=== PATIENT | male | born 1960 | race Caucasian/White ===

== ENCOUNTER 2017-08-04 01:29 | Inpatient (IN) | payer OTHER ==
[2017-08-04] VITALS (7 sets, daily range): BP systolic 141–170; BP diastolic 94–108
[~2017-08-04] VITALS: Ht 185.4 cm; Wt 85.4 kg
[2017-08-04 02:03] LABS: BASO # 0.1 x10^3/uL (0.0-0.2); BASO % 1 % (0-3); EOS % 3 % (0-3); HEMATOCRIT 43.4 % (39.0-53.0); HEMOGLOBIN 14.6 g/dL (13.0-17.5); LYMPH # 3.8 x10^3/uL (1.0-4.8); LYMPH % 37 % (24-48); MEAN CORPUSCULAR HEMOGLOBIN 29 pg (25-35); MEAN CORPUSCULAR HGB CONC 34 g/dL (31-37); MEAN CORPUSCULAR VOLUME 85 fL (79-100); MONO % 9 % (0-9); NEUT % 51 % (31-73); PLATELET COUNT 200 x10^3/uL (140-400); WHITE BLOOD COUNT 10.5 x10^3/uL (4.0-11.0)
[2017-08-04 02:15] LABS: CALCIUM 8.9 mg/dL (8.5-10.1); CREATININE 1.4 mg/dL (0.7-1.3); GFR 51.9; POTASSIUM 3.3 mmol/L (3.5-5.1)
[2017-08-04] MEDS ORDERED: LABETALOL 20 MG/4 ML DISP.SYRIN. IVP ONE (02:15)
[2017-08-04 02:16] LABS: PROTHROMBIN TIME PATIENT 12.2 SEC (11.7-14.0)
[2017-08-04 02:21] LABS: ALBUMIN 4.3 g/dL (3.4-5.0); ALBUMIN/GLOBULIN RATIO 1.3 (1.0-1.7); TOTAL BILIRUBIN 0.3 mg/dL (0.2-1.0); TOTAL PROTEIN 7.5 g/dL (6.4-8.2)
--- NOTE | 2017-08-04 02:38 | RAD ---
CT head without contrast: Reason for examination: Left arm and left leg numbness starting at 12:30 AM this morning. Numbness now resolving. Axial images were obtained through the brain. No contrast was administered. Exposure: One or more of the following individualized dose reduction techniques were utilized for this examination: 1. Automated exposure control 2. Adjustment of the mA and/or kV according to patient size 3. Use of iterative reconstruction technique. Ventricular systems are symmetric and not dilated. No midline shift is seen. There is no evidence of intracranial hemorrhage, infarct, mass or edema. There is some vascular calcification present in the intracranial carotid and vertebral arteries. No abnormalities are seen at the orbits. The paranasal sinuses and mastoid air cells are clear. No acute abnormality seen in the skull. IMPRESSION: No acute intracranial abnormality evident. Electronically signed by: Melissa Goodman MD (08/04/2017 2:35 AM) [facility]
[2017-08-04] MEDS ORDERED: ASPIRIN 325 MG TABLET PO ONE (03:00)
[2017-08-04] MEDS ORDERED: POTASSIUM CHLORIDE 20 MEQ TABLET.ER. PO ONE (03:30)
[2017-08-04 03:43] LABS: BARBITURATES NEG (NEG); BENZODIAZEPINES NEG (NEG); CANNABINOIDS NEG (NEG); COCAINE NEG (NEG); METHADONE NEG (NEG); OPIATES NEG (NEG); PHENCYCLIDINE NEG (NEG)
[2017-08-04] MEDS ORDERED: ONDANSETRON PF 4 MG/2 ML VIAL. IV PRN ×2 (03:45→10:00)
[2017-08-04] MEDS ORDERED: ACETAMINOPHEN 325 MG TABLET. PO PRN ×2 (03:45→10:00)
[2017-08-04] MEDS ORDERED: LABETALOL 20 MG/4 ML DISP.SYRIN. IVP PRN (03:45)
[2017-08-04] MEDS ORDERED: MORPHINE SULFATE 2 MG/ML DISP.SYRIN. IV PRN ×2 (03:45→10:00)
--- NOTE | 2017-08-04 04:02 | PHYS DOC ---
Past Medical History Past Medical History: High Cholesterol, Hypertension, [place] Past Surgical History: Other Additional Past Surgical Histo: CARDIAC STENTS Alcohol Use: None Drug Use: None Adult General Chief Complaint Chief Complaint: WEAKNESS/GENERALIZED HPI HPI Patient is a 57 year old male who presents with neurologic symptoms. The patient states about 1 hour prior to arrival he had onset of numbness & tingling to his left arm & leg without associated weakness. 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 He denies headache , vision changes, facial droop, slurred speech, chest pain, shortness of breath. He denies previous history of similar symptoms. He has history of hypertension but not compliant with home meds x weeks because he has difficulty remembering to take them, & is a current every day smoker. Review of Systems Review of Systems Constitutional: Denies fever or chills Eyes: Denies change in visual acuity HENT: Denies nasal congestion or sore throat Respiratory: Denies cough or shortness of breath Cardiovascular: Denies chest pain or edema GI: Denies abdominal pain, nausea, vomiting, bloody stools or diarrhea Musculoskeletal: Denies back pain or joint pain Integument: Denies rash or skin lesions Neurologic: Denies headache, reports numbness to left upper and lower extremity Current Medications Current Medications Current Medications Medications (Trade) Dose Ordered Sig/Surekha Start Time Stop Time Status Last Admin Dose Admin Acetaminophen (Tylenol) 650 mg PRN Q4HRS PRN 08/04/17 03:45 08/05/17 03:44 UNV Aspirin (Julia Aspirin) 325 mg 1X ONCE 08/04/17 03:00 08/04/17 03:02 DC 08/04/17 03:00 325 MG Labetalol HCl (Normodyne) 10 mg PRN Q2HR PRN 08/04/17 03:45 UNV Morphine Sulfate 2 mg PRN Q2HR PRN 08/04/17 03:45 08/05/17 03:44 UNV Ondansetron HCl (Zofran) 4 mg PRN Q8HRS PRN 08/04/17 03:45 08/05/17 03:44 UNV Potassium Chloride (Klor-Con) 40 meq 1X ONCE 08/04/17 03:30 08/04/17 03:31 DC Allergies Allergies Allergies Coded Allergies Type Severity Reaction Last Updated Verified No Known Drug Allergies 08/04/17 No Physical Exam Physical Exam Constitutional: Well developed, well nourished, no acute distress, non-toxic appearance. HENT: Normocephalic, atraumatic, bilateral external ears normal, oropharynx moist, nose normal. Eyes: PERRLA, EOMI, conjunctiva normal, no discharge. Neck: supple, no stridor. Cardiovascular: tachycardic, regular, no murmurs, no edema. Lungs & Thorax: LCTAB, no wheezing, no respiratory distress. Abdomen: soft, nontender, nondistended. Skin: Warm, dry, no erythema, no rash. Back: No tenderness. Extremities: No tenderness, no edema. Neurologic: Alert and oriented X 3, CN2-12 grossly intact, symmetric strength/ sensation to upper & lower extremities, intact finger to nose & heel to craft, no focal deficits noted. NIH score is 0. Psychologic: Affect normal, judgement normal, mood normal. Current Patient Data Vital Signs Vital Signs Date Time Temp Pulse Resp B/P (MAP) Pulse Ox O2 Delivery O2 Flow Rate FiO2 08/04/17 02:57 109 219/118 08/04/17 01:43 98.7 16 99 Room Air 98.7 Lab Values Laboratory Tests Test 08/04/17 01:37 White Blood Count 10.5 x10^3/uL (4.0-11.0) Red Blood Count 5.10 x10^6/uL (4.30-5.70) Hemoglobin 14.6 g/dL (13.0-17.5) Hematocrit 43.4 % (39.0-53.0) Mean Corpuscular Volume 85 fL (79-100) Mean Corpuscular Hemoglobin 29 pg (25-35) Mean Corpuscular Hemoglobin Concent 34 g/dL (31-37) Red Cell Distribution Width 14.0 % (11.5-14.5) Platelet Count 200 x10^3/uL (140-400) Neutrophils (%) (Auto) 51 % (31-73) Lymphocytes (%) (Auto) 37 % (24-48) Monocytes (%) (Auto) 9 % (0-9) Eosinophils (%) (Auto) 3 % (0-3) Basophils (%) (Auto) 1 % (0-3) Neutrophils # (Auto) 5.4 x10^3uL (1.8-7.7) Lymphocytes # (Auto) 3.8 x10^3/uL (1.0-4.8) Monocytes # (Auto) 0.9 x10^3/uL (0.0-1.1) Eosinophils # (Auto) 0.3 x10^3/uL (0.0-0.7) Basophils # (Auto) 0.1 x10^3/uL (0.0-0.2) Prothrombin Time 12.2 SEC (11.7-14.0) Prothrombin Time INR 1.0 (0.8-1.1) PTT 28 SEC (24-38) Sodium Level 139 mmol/L (136-145) Potassium Level 3.3 mmol/L (3.5-5.1) L Chloride Level 102 mmol/L (98-107) Carbon Dioxide Level 28 mmol/L (21-32) Anion Gap 9 (6-14) Blood Urea Nitrogen 11 mg/dL (8-26) Creatinine 1.4 mg/dL (0.7-1.3) H Estimated GFR (Cockcroft-Gault) 51.9 BUN/Creatinine Ratio 8 (6-20) Glucose Level 109 mg/dL (70-99) H Calcium Level 8.9 mg/dL (8.5-10.1) Total Bilirubin 0.3 mg/dL (0.2-1.0) Aspartate Amino Transferase (AST) 17 U/L (15-37) Alanine Aminotransferase (ALT) 24 U/L (16-63) Alkaline Phosphatase 164 U/L (46-116) H Troponin I Quantitative < 0.017 ng/mL (0.000-0.055) Total Protein 7.5 g/dL (6.4-8.2) Albumin 4.3 g/dL (3.4-5.0) Albumin/Globulin Ratio 1.3 (1.0-1.7) Ethyl Alcohol Level < 10 mg/dL (0-10) Laboratory Tests 08/04/17 01:37 Laboratory Tests 08/04/17 01:37 EKG EKG interpreted by me: sinus tachycardia rate 114, no acute ST/T wave changes, normal intervals, no ectopy[] Radiology/Procedures Radiology/Procedures PROCEDURE: CT HEAD WO CONTRAST CT head without contrast: Reason for examination: Left arm and left leg numbness starting at 12:30 AM this morning. Numbness now resolving. Axial images were obtained through the brain. No contrast was administered. Exposure: One or more of the following individualized dose reduction techniques were utilized for this examination: 1. Automated exposure control 2. Adjustment of the mA and/or kV according to patient size 3. Use of iterative reconstruction technique. Ventricular systems are symmetric and not dilated. No midline shift is seen. There is no evidence of intracranial hemorrhage, infarct, mass or edema. There is some vascular calcification present in the intracranial carotid and vertebral arteries. No abnormalities are seen at the orbits. The paranasal sinuses and mastoid air cells are clear. No acute abnormality seen in the skull. IMPRESSION: No acute intracranial abnormality evident. Electronically signed by: Arianna Garcia MD (08/04/2017 2:35 AM) [facility] DICTATED and SIGNED BY: ARIANNA GARCIA MD DATE: 08/04/17 0232 CXR: interpreted by me: no cardiomegaly, no infiltrate, no pneumothorax, narrow mediastinum, no acute process.[] Course & Med Decision Making Course & Med Decision Making Pertinent Labs and Imaging studies reviewed. (See chart for details) The patient presents with neurologic symptoms. His only complaint is sensory change on the left. NIH was 0, had no sensory deficit with light touch to extremities. Blood pressure markedly elevated 210s/110s, gave labetalol. CT head shows no acute abnormality, labs as above. Gave aspirin. Recommended admission for further blood pressure monitoring/management & neurologic evaluation. The patient agrees with plan of care. Discussed with Dr. Tucker who agrees to admit to inpatient status, neurology consult to Dr. Underwood. The patient is admitted in stable condition. [] Dragon Disclaimer Dragon Disclaimer This electronic medical record was generated, in whole or in part, using a voice recognition dictation system. Departure Departure Impression: Primary Impression: Accelerated hypertension Additional Impressions: Paresthesia Hypokalemia Disposition: ADMITTED INPATIENT Condition: STABLE Referrals: NO PCP (PCP) Problem Qualifiers MARJ CRAVEN MD Aug 04, 2017 04:02
[2017-08-04] MEDS ORDERED: LISI-334 PO (04:57)
[2017-08-04] MEDS ORDERED: ASPI325T8 PO (04:57)
[2017-08-04] MEDS ORDERED: METO25TA4 PO (04:57)
[2017-08-04] MEDS ORDERED: CLOP75TA PO (04:57)
[2017-08-04] MEDS ORDERED: ATOR40TA PO (04:57)
[2017-08-04] MEDS ORDERED: FAMO-63 PO (06:16)
[2017-08-04] MEDS ORDERED: FAMOTIDINE 20 MG TABLET. PO PRN (06:30)
--- NOTE | 2017-08-04 07:18 | RAD ---
Portable chest, 08/04/2017: History: Left arm and leg numbness The heart size and pulmonary vascularity are normal. There is mild tortuosity of the thoracic aorta. The lungs are clear. There is no evidence of pleural fluid. IMPRESSION: No acute cardiopulmonary abnormality is detected.
[2017-08-04] MEDS: ASPIRIN 325 MG TABLET PO SCH (08:14)
[2017-08-04] MEDS ORDERED: METOPROLOL TART IMMED RELEASE 25 MG TABLET. PO SCH (09:00)
[2017-08-04] MEDS ORDERED: LISINOPRIL 20 MG TABLET PO SCH (09:00)
[2017-08-04] MEDS ORDERED: DOCUSATE SODIUM 100 MG CAPSULE. PO PRN (10:00)
[2017-08-04] MEDS ORDERED: traMADol 50 MG TABLET PO PRN (10:00)
[2017-08-04] MEDS ORDERED: hydrALAZINE 20 MG/ML VIAL. IVP PRN ×2 (10:00→17:00)
--- NOTE | 2017-08-04 11:49 | EKG ---
[facility] [address] [place] [address] Test Date: 2017-08-04 Test Time: 01:47:22 Pat Name: RISSA JARA Department: Room: 206 Gender: M [employer]: : 1960 Requested By: MRAJ CRAVEN Order Number: [id number] Reading MD: Fabien Metzger Measurements Intervals [place] Rate: 114 P: -38 [place]: 138 QRS: -10 QRSD: 104 T: 36 QT: 336 QTc: 467 Interpretive Statements SINUS TACHYCARDIA LEFTWARD AXIS QRS(T) CONTOUR ABNORMALITY CANNOT RULE OUT ANTEROSEPTAL MYOCARDIAL DAMAGE CANNOT RULE OUT INFERIOR MYOCARDIAL DAMAGE RI6.01 Unconfirmed report No previous ECG available for comparison Electronically Signed On 08-23-2017 17:03:39 CDT by Fabien Metzger
--- NOTE | 2017-08-04 13:37 | PDOC1 ---
History and Physical Date of Admission Date of Admission 08/03/17 Identification/Chief Complaint Chief Complaint left arm numbness, weakness Problems: Source Source: Chart review, Patient History of Present Illness History of Present Illness HPI HPI Patient is a 57 year old male who presents with left arm numbness and weakness since 1am. 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 1AM, he was driving the truck, feels left arm numbness, some weakness, left leg is ok. has some headache x2 weeks, no vision or hearing change. Denies fever, chills, sob, slurry speech, chest pain, sob. never had CVA. <1PPD head CT neg, BP >200/120 in ER. Past Medical History Cardiovascular: HTN, LA Past Surgical History Past Surgical History: No pertinent history Family History Family History stroke Social History Smoke: <1 pack per day ALCOHOL: occassional Drugs: None Current Problem List Problem List Problems Medical Problems: (1) Accelerated hypertension Status: Acute (2) Hypokalemia Status: Acute (3) Paresthesia Status: Acute Current Medications Current Medications Current Medications Medications (Trade) Dose Ordered Sig/Surekha Start Time Stop Time Status Last Admin Dose Admin Acetaminophen (Tylenol) 650 mg PRN Q6HRS PRN 08/04/17 10:00 Aspirin (Julia Aspirin) 325 mg DAILY 08/04/17 09:00 08/04/17 08:14 325 MG Atorvastatin Calcium (Lipitor) 40 mg HS 08/04/17 21:00 Docusate Sodium (Colace) 100 mg PRN DAILY PRN 08/04/17 10:00 Famotidine (Pepcid) 20 mg PRN QHS PRN 08/04/17 06:30 08/04/17 06:32 20 MG Hydralazine HCl (Apresoline) 10 mg PRN Q4HRS PRN 08/04/17 10:00 Labetalol HCl (Normodyne) 10 mg PRN Q2HR PRN 08/04/17 03:45 08/04/17 05:55 10 MG Lisinopril (Prinivil) 20 mg DAILY 08/04/17 09:00 08/04/17 08:15 20 MG Metoprolol Tartrate (Lopressor) 25 mg BID 08/04/17 09:00 08/04/17 08:15 25 MG Morphine Sulfate 2 mg PRN Q2HR PRN 08/04/17 10:00 Ondansetron HCl (Zofran) 4 mg PRN Q6HRS PRN 08/04/17 10:00 Potassium Chloride (Klor-Con) 40 meq 1X ONCE 08/04/17 03:30 08/04/17 03:31 DC 08/04/17 03:55 40 MEQ Tramadol HCl (Ultram) 50 mg PRN Q6HRS PRN 08/04/17 10:00 Allergies Allergies Allergies Coded Allergies Type Severity Reaction Last Updated Verified No Known Drug Allergies 08/04/17 No ROS Review of System CONSTITUTIONAL: No fever or chills EYES: No recent changes SKIN: No rash or itching CARDIOVASCULAR: No chest pain, syncope, palpitations, or edema RESPIRATORY: No SOB or cough GASTROINTESTINAL: No nausea, vomiting or abdominal pain NEUROLOGICAL: No headaches or weakness ENDOCRINE: No cold or heat intolerance GENITOURINARY: No urgency or frequency of urination MUSCULOSKELETAL: No back pain or joint pain LYMPHATICS: No enlarged lymph nodes PSYCHIATRIC: No anxiety or depression Physical Exam Physical Exam GEN.: No apparent distress. Alert and oriented. HEENT: Head is normocephalic, atraumatic NECK: Supple. LUNGS: Clear to auscultation. HEART: RRR, S1, S2 present. Peripheral pulses intact ABDOMEN: Soft, nontender. Positive bowel sounds. EXTREMITIES: Without any cyanosis. left arm slightly weaker , strength 4/5 , right side 5/5 NEUROLOGIC: Normal speech, normal tone PSYCHIATRIC: Normal affect, normal mood. SKIN: No ulcerations Vitals Vitals Vital Signs Date Time Temp Pulse Resp B/P (MAP) Pulse Ox O2 Delivery O2 Flow Rate FiO2 08/04/17 11:00 98.0 86 18 144/99 (114) 96 Room Air 98.0 Labs Labs Laboratory Tests Test 08/04/17 01:37 08/04/17 02:30 08/04/17 11:46 White Blood Count 10.5 x10^3/uL (4.0-11.0) Red Blood Count 5.10 x10^6/uL (4.30-5.70) Hemoglobin 14.6 g/dL (13.0-17.5) Hematocrit 43.4 % (39.0-53.0) Mean Corpuscular Volume 85 fL (79-100) Mean Corpuscular Hemoglobin 29 pg (25-35) Mean Corpuscular Hemoglobin Concent 34 g/dL (31-37) Red Cell Distribution Width 14.0 % (11.5-14.5) Platelet Count 200 x10^3/uL (140-400) Neutrophils (%) (Auto) 51 % (31-73) Lymphocytes (%) (Auto) 37 % (24-48) Monocytes (%) (Auto) 9 % (0-9) Eosinophils (%) (Auto) 3 % (0-3) Basophils (%) (Auto) 1 % (0-3) Neutrophils # (Auto) 5.4 x10^3uL (1.8-7.7) Lymphocytes # (Auto) 3.8 x10^3/uL (1.0-4.8) Monocytes # (Auto) 0.9 x10^3/uL (0.0-1.1) Eosinophils # (Auto) 0.3 x10^3/uL (0.0-0.7) Basophils # (Auto) 0.1 x10^3/uL (0.0-0.2) Prothrombin Time 12.2 SEC (11.7-14.0) Prothromb Time International Ratio 1.0 (0.8-1.1) Activated Partial Thromboplast Time 28 SEC (24-38) Sodium Level 139 mmol/L (136-145) Potassium Level 3.3 mmol/L (3.5-5.1) Chloride Level 102 mmol/L (98-107) Carbon Dioxide Level 28 mmol/L (21-32) Anion Gap 9 (6-14) Blood Urea Nitrogen 11 mg/dL (8-26) Creatinine 1.4 mg/dL (0.7-1.3) Estimated GFR (Cockcroft-Gault) 51.9 BUN/Creatinine Ratio 8 (6-20) Glucose Level 109 mg/dL (70-99) Calcium Level 8.9 mg/dL (8.5-10.1) Total Bilirubin 0.3 mg/dL (0.2-1.0) Aspartate Amino Transf (AST/SGOT) 17 U/L (15-37) Alanine Aminotransferase (ALT/SGPT) 24 U/L (16-63) Alkaline Phosphatase 164 U/L (46-116) Troponin I Quantitative < 0.017 ng/mL (0.000-0.055) < 0.017 ng/mL (0.000-0.055) Total Protein 7.5 g/dL (6.4-8.2) Albumin 4.3 g/dL (3.4-5.0) Albumin/Globulin Ratio 1.3 (1.0-1.7) Ethyl Alcohol Level < 10 mg/dL (0-10) Urine Opiates Screen Neg (NEG) Urine Methadone Screen Neg (NEG) Urine Barbiturates Neg (NEG) Urine Phencyclidine Screen Neg (NEG) Urine Amphetamine/Methamphetamine Neg (NEG) Urine Benzodiazepines Screen Neg (NEG) Urine Cocaine Screen Neg (NEG) Urine Cannabinoids Screen Neg (NEG) Urine Ethyl Alcohol Neg (NEG) Laboratory Tests Test 08/04/17 01:37 08/04/17 02:30 08/04/17 11:46 White Blood Count 10.5 x10^3/uL (4.0-11.0) Red Blood Count 5.10 x10^6/uL (4.30-5.70) Hemoglobin 14.6 g/dL (13.0-17.5) Hematocrit 43.4 % (39.0-53.0) Mean Corpuscular Volume 85 fL (79-100) Mean Corpuscular Hemoglobin 29 pg (25-35) Mean Corpuscular Hemoglobin Concent 34 g/dL (31-37) Red Cell Distribution Width 14.0 % (11.5-14.5) Platelet Count 200 x10^3/uL (140-400) Neutrophils (%) (Auto) 51 % (31-73) Lymphocytes (%) (Auto) 37 % (24-48) Monocytes (%) (Auto) 9 % (0-9) Eosinophils (%) (Auto) 3 % (0-3) Basophils (%) (Auto) 1 % (0-3) Neutrophils # (Auto) 5.4 x10^3uL (1.8-7.7) Lymphocytes # (Auto) 3.8 x10^3/uL (1.0-4.8) Monocytes # (Auto) 0.9 x10^3/uL (0.0-1.1) Eosinophils # (Auto) 0.3 x10^3/uL (0.0-0.7) Basophils # (Auto) 0.1 x10^3/uL (0.0-0.2) Prothrombin Time 12.2 SEC (11.7-14.0) Prothromb Time International Ratio 1.0 (0.8-1.1) Activated Partial Thromboplast Time 28 SEC (24-38) Sodium Level 139 mmol/L (136-145) Potassium Level 3.3 mmol/L (3.5-5.1) Chloride Level 102 mmol/L (98-107) Carbon Dioxide Level 28 mmol/L (21-32) Anion Gap 9 (6-14) Blood Urea Nitrogen 11 mg/dL (8-26) Creatinine 1.4 mg/dL (0.7-1.3) Estimated GFR (Cockcroft-Gault) 51.9 BUN/Creatinine Ratio 8 (6-20) Glucose Level 109 mg/dL (70-99) Calcium Level 8.9 mg/dL (8.5-10.1) Total Bilirubin 0.3 mg/dL (0.2-1.0) Aspartate Amino Transf (AST/SGOT) 17 U/L (15-37) Alanine Aminotransferase (ALT/SGPT) 24 U/L (16-63) Alkaline Phosphatase 164 U/L (46-116) Troponin I Quantitative < 0.017 ng/mL (0.000-0.055) < 0.017 ng/mL (0.000-0.055) Total Protein 7.5 g/dL (6.4-8.2) Albumin 4.3 g/dL (3.4-5.0) Albumin/Globulin Ratio 1.3 (1.0-1.7) Ethyl Alcohol Level < 10 mg/dL (0-10) Urine Opiates Screen Neg (NEG) Urine Methadone Screen Neg (NEG) Urine Barbiturates Neg (NEG) Urine Phencyclidine Screen Neg (NEG) Urine Amphetamine/Methamphetamine Neg (NEG) Urine Benzodiazepines Screen Neg (NEG) Urine Cocaine Screen Neg (NEG) Urine Cannabinoids Screen Neg (NEG) Urine Ethyl Alcohol Neg (NEG) VTE Prophylaxis Ordered VTE Prophylaxis Devices: Yes VTE Pharmacological Prophylaxi: Yes Assessment/Plan Assessment/Plan left arm numbness/weakness, very mild need to rule out stroke htn URGENCY hld h/o CAD with 1 stent tobaccoism HYPOKALEMIA plan: neuro consult brain MRI add asa, plavix cont metoprol, increase lisinopril to 40mg daily dvt ppx replete ISAIAS BLANK MD Aug 04, 2017 13:37
--- NOTE | 2017-08-04 16:52 | RAD ---
Indication: Left arm numbness. Multiplanar multisequence imaging of the brain was performed without contrast. Ventricles and sulci are within normal limits. No sulcal effacement is seen. The normal expected flow-voids within the carotid siphons are seen. No acute intra-axial or extra-axial hemorrhage is detected. There is a small area of diffusion restriction identified on the right. This is adjacent to the posterior aspect of the right lateral ventricle within the rodríguez radiata and extends slightly caudal to the posterior aspect of the basal ganglia. No mass effect or midline shift is seen. The cisterns are patent. IMPRESSION: Findings consistent with small nonhemorrhagic infarct on the right, as described. No acute intracranial hemorrhage is detected. Electronically signed by: Garcia Kirkpatrick MD (08/04/2017 4:49 PM) [facility] [place]
[2017-08-04] MEDS: ENOXAPARIN 40 MG/0.4 ML SYRINGE. SQ SCH (17:55)
[2017-08-04] MEDS: CLOPIDOGREL BISULFATE 75 MG TABLET PO SCH (17:55)
--- NOTE | 2017-08-04 20:39 | PDOC2 ---
NEUROLOGY CONSULT Date of Admission Date of Admission Full Report Dictated DATE: 08/04/17 TIME: 20:37 Current Medications Current Medications Current Medications Labetalol HCl (Normodyne) 10 mg 1X ONCE IVP Last administered on 08/04/17 02: 57; Start 08/04/17 at 02:15; Stop 08/04/17 at 02:16; Status DC Aspirin (Julia Aspirin) 325 mg 1X ONCE PO Last administered on 08/04/17 03:00 ; Start 08/04/17 at 03:00; Stop 08/04/17 at 03:02; Status DC Potassium Chloride (Klor-Con) 40 meq 1X ONCE PO Last administered on 03:55; Start 08/04/17 at 03:30; Stop 08/04/17 at 03:31; Status DC Ondansetron HCl (Zofran) 4 mg PRN Q8HRS PRN IV NAUSEA/VOMITING; Start 08/04/17 at 03:45; Stop 08/04/17 at 13:38; Status DC Morphine Sulfate 2 mg PRN Q2HR PRN IV PAIN; Start 08/04/17 at 03:45; Stop 08/04 at 13:38; Status DC Acetaminophen (Tylenol) 650 mg PRN Q4HRS PRN PO FEVER; Start 08/04/17 at 03:45 ; Stop 08/04/17 at 13:38; Status DC Labetalol HCl (Normodyne) 10 mg PRN Q2HR PRN IVP HYPERTENSION, SEE COMMENTS Last administered on 08/04/17 05:55; Start 08/04/17 at 03:45; Stop 08/04/17 at 16:58; Status DC Aspirin (Julia Aspirin) 325 mg DAILY PO Last administered on 08/04/17 08:14; Start 08/04/17 at 09:00 Atorvastatin Calcium (Lipitor) 40 mg HS PO ; Start 08/04/17 at 21:00 Famotidine (Pepcid) 20 mg PRN QHS PRN PO HEARTBURN / GAS Last administered on 08/04/17 06:32; Start 08/04/17 at 06:30 Lisinopril (Prinivil) 20 mg DAILY PO Last administered on 08/04/17 08:15; Start 08/04/17 at 09:00; Stop 08/04/17 at 13:32; Status DC Metoprolol Tartrate (Lopressor) 25 mg BID PO Last administered on 08/04/17 08: 15; Start 08/04/17 at 09:00; Stop 08/04/17 at 16:58; Status DC Acetaminophen (Tylenol) 650 mg PRN Q6HRS PRN PO FEVER; Start 08/04/17 at 10:00 Ondansetron HCl (Zofran) 4 mg PRN Q6HRS PRN IV NAUSEA/VOMITING; Start 08/04/17 at 10:00 Morphine Sulfate 2 mg PRN Q2HR PRN IV PAIN; Start 08/04/17 at 10:00 Tramadol HCl (Ultram) 50 mg PRN Q6HRS PRN PO PAIN; Start 08/04/17 at 10:00 Hydralazine HCl (Apresoline) 10 mg PRN Q4HRS PRN IVP ELEVATED BP, SEE COMMENTS ; Start 08/04/17 at 10:00; Stop 08/04/17 at 16:58; Status DC Docusate Sodium (Colace) 100 mg PRN DAILY PRN PO CONSTIPATION; Start 08/04/17 at 10:00 Lisinopril (Prinivil) 40 mg DAILY PO ; Start 08/05/17 at 09:00 Enoxaparin Sodium (Lovenox 40mg Syringe) 40 mg Q24H SQ Last administered on 17:55; Start 08/04/17 at 14:00 Clopidogrel Bisulfate (Plavix) 75 mg DAILY PO Last administered on 08/04/17 17 :55; Start 08/04/17 at 14:00 Metoprolol Tartrate (Lopressor) 25 mg BID PO ; Start 08/05/17 at 10:00 Hydralazine HCl (Apresoline) 10 mg PRN Q4HRS PRN IVP ELEVATED BP, SEE COMMENTS ; Start 08/04/17 at 17:00 Active Scripts Active Reported Pepcid (Famotidine) 20 Mg Tablet 20 Mg PO HS PRN Lipitor (Atorvastatin Calcium) 40 Mg Tablet 1 Tab PO DAILY Metoprolol Tartrate 25 Mg Tablet 1 Tab PO BID Lisinopril 20 Mg Tablet 1 Tab PO DAILY Clopidogrel (Clopidogrel Bisulfate) 75 Mg Tablet 1 Tab PO DAILY Aspirin 325 Mg Tablet 1 Tab PO DAILY Allergies Allergies: Coded Allergies: No Known Drug Allergies (Unverified , 08/04/17) Vitals VITALS Vital Signs Date Time Temp Pulse Resp B/P (MAP) Pulse Ox O2 Delivery O2 Flow Rate FiO2 08/04/17 20:13 98.2 88 16 159/98 (118) 96 Room Air 98.2 Labs Labs Laboratory Tests Test 08/04/17 01:37 08/04/17 02:30 08/04/17 11:46 08/04/17 18:30 White Blood Count 10.5 x10^3/uL (4.0-11.0) Red Blood Count 5.10 x10^6/uL (4.30-5.70) Hemoglobin 14.6 g/dL (13.0-17.5) Hematocrit 43.4 % (39.0-53.0) Mean Corpuscular Volume 85 fL (79-100) Mean Corpuscular Hemoglobin 29 pg (25-35) Mean Corpuscular Hemoglobin Concent 34 g/dL (31-37) Red Cell Distribution Width 14.0 % (11.5-14.5) Platelet Count 200 x10^3/uL (140-400) Neutrophils (%) (Auto) 51 % (31-73) Lymphocytes (%) (Auto) 37 % (24-48) Monocytes (%) (Auto) 9 % (0-9) Eosinophils (%) (Auto) 3 % (0-3) Basophils (%) (Auto) 1 % (0-3) Neutrophils # (Auto) 5.4 x10^3uL (1.8-7.7) Lymphocytes # (Auto) 3.8 x10^3/uL (1.0-4.8) Monocytes # (Auto) 0.9 x10^3/uL (0.0-1.1) Eosinophils # (Auto) 0.3 x10^3/uL (0.0-0.7) Basophils # (Auto) 0.1 x10^3/uL (0.0-0.2) Prothrombin Time 12.2 SEC (11.7-14.0) Prothromb Time International Ratio 1.0 (0.8-1.1) Activated Partial Thromboplast Time 28 SEC (24-38) Sodium Level 139 mmol/L (136-145) Potassium Level 3.3 mmol/L (3.5-5.1) Chloride Level 102 mmol/L (98-107) Carbon Dioxide Level 28 mmol/L (21-32) Anion Gap 9 (6-14) Blood Urea Nitrogen 11 mg/dL (8-26) Creatinine 1.4 mg/dL (0.7-1.3) Estimated GFR (Cockcroft-Gault) 51.9 BUN/Creatinine Ratio 8 (6-20) Glucose Level 109 mg/dL (70-99) Calcium Level 8.9 mg/dL (8.5-10.1) Total Bilirubin 0.3 mg/dL (0.2-1.0) Aspartate Amino Transf (AST/SGOT) 17 U/L (15-37) Alanine Aminotransferase (ALT/SGPT) 24 U/L (16-63) Alkaline Phosphatase 164 U/L (46-116) Troponin I Quantitative < 0.017 ng/mL (0.000-0.055) < 0.017 ng/mL (0.000-0.055) < 0.017 ng/mL (0.000-0.055) Total Protein 7.5 g/dL (6.4-8.2) Albumin 4.3 g/dL (3.4-5.0) Albumin/Globulin Ratio 1.3 (1.0-1.7) Ethyl Alcohol Level < 10 mg/dL (0-10) Urine Opiates Screen Neg (NEG) Urine Methadone Screen Neg (NEG) Urine Barbiturates Neg (NEG) Urine Phencyclidine Screen Neg (NEG) Urine Amphetamine/Methamphetamine Neg (NEG) Urine Benzodiazepines Screen Neg (NEG) Urine Cocaine Screen Neg (NEG) Urine Cannabinoids Screen Neg (NEG) Urine Ethyl Alcohol Neg (NEG) Laboratory Tests Test 08/04/17 01:37 08/04/17 02:30 08/04/17 11:46 08/04/17 18:30 White Blood Count 10.5 x10^3/uL (4.0-11.0) Red Blood Count 5.10 x10^6/uL (4.30-5.70) Hemoglobin 14.6 g/dL (13.0-17.5) Hematocrit 43.4 % (39.0-53.0) Mean Corpuscular Volume 85 fL (79-100) Mean Corpuscular Hemoglobin 29 pg (25-35) Mean Corpuscular Hemoglobin Concent 34 g/dL (31-37) Red Cell Distribution Width 14.0 % (11.5-14.5) Platelet Count 200 x10^3/uL (140-400) Neutrophils (%) (Auto) 51 % (31-73) Lymphocytes (%) (Auto) 37 % (24-48) Monocytes (%) (Auto) 9 % (0-9) Eosinophils (%) (Auto) 3 % (0-3) Basophils (%) (Auto) 1 % (0-3) Neutrophils # (Auto) 5.4 x10^3uL (1.8-7.7) Lymphocytes # (Auto) 3.8 x10^3/uL (1.0-4.8) Monocytes # (Auto) 0.9 x10^3/uL (0.0-1.1) Eosinophils # (Auto) 0.3 x10^3/uL (0.0-0.7) Basophils # (Auto) 0.1 x10^3/uL (0.0-0.2) Prothrombin Time 12.2 SEC (11.7-14.0) Prothromb Time International Ratio 1.0 (0.8-1.1) Activated Partial Thromboplast Time 28 SEC (24-38) Sodium Level 139 mmol/L (136-145) Potassium Level 3.3 mmol/L (3.5-5.1) Chloride Level 102 mmol/L (98-107) Carbon Dioxide Level 28 mmol/L (21-32) Anion Gap 9 (6-14) Blood Urea Nitrogen 11 mg/dL (8-26) Creatinine 1.4 mg/dL (0.7-1.3) Estimated GFR (Cockcroft-Gault) 51.9 BUN/Creatinine Ratio 8 (6-20) Glucose Level 109 mg/dL (70-99) Calcium Level 8.9 mg/dL (8.5-10.1) Total Bilirubin 0.3 mg/dL (0.2-1.0) Aspartate Amino Transf (AST/SGOT) 17 U/L (15-37) Alanine Aminotransferase (ALT/SGPT) 24 U/L (16-63) Alkaline Phosphatase 164 U/L (46-116) Troponin I Quantitative < 0.017 ng/mL (0.000-0.055) < 0.017 ng/mL (0.000-0.055) < 0.017 ng/mL (0.000-0.055) Total Protein 7.5 g/dL (6.4-8.2) Albumin 4.3 g/dL (3.4-5.0) Albumin/Globulin Ratio 1.3 (1.0-1.7) Ethyl Alcohol Level < 10 mg/dL (0-10) Urine Opiates Screen Neg (NEG) Urine Methadone Screen Neg (NEG) Urine Barbiturates Neg (NEG) Urine Phencyclidine Screen Neg (NEG) Urine Amphetamine/Methamphetamine Neg (NEG) Urine Benzodiazepines Screen Neg (NEG) Urine Cocaine Screen Neg (NEG) Urine Cannabinoids Screen Neg (NEG) Urine Ethyl Alcohol Neg (NEG) Assessment/Plan Assessment/Plan Patient is a 57-year-old man with hypertension, coronary artery disease, hyperlipidemia and a smoker. He stopped all his medicines several weeks ago. He presented to the emergency room with left-sided symptoms. MRI revealed evidence of a stroke which appears lacunar in the right rodríguez radiata. Prognosis for recovery is favorable. He needs to stop smoking immediately. He needs to be back on atorvastatin, lisinopril, metoprolol, aspirin and Plavix. We'll need a fasting lipid profile in a month to make sure the medication is effective. His blood pressure needs to be monitored. He should stay off work for a week to allow himself recovery time. We discussed that he is at significant risk for recurrent stroke and thus he needs to modify his risk factors very diligently. VERN ASHLEY MD Aug 04, 2017 20:39
[2017-08-04] MEDS: ATORVASTATIN CALCIUM 40 MG TABLET. PO SCH (21:24)
[2017-08-05 03:41] VITALS: BP 124/62
[2017-08-05 06:06] LABS: BASO # 0.1 x10^3/uL (0.0-0.2); BASO % 1 % (0-3); EOS % 3 % (0-3); HEMATOCRIT 41.7 % (39.0-53.0); HEMOGLOBIN 13.9 g/dL (13.0-17.5); LYMPH # 2.6 x10^3/uL (1.0-4.8); LYMPH % 32 % (24-48); MEAN CORPUSCULAR HEMOGLOBIN 29 pg (25-35); MEAN CORPUSCULAR HGB CONC 34 g/dL (31-37); MEAN CORPUSCULAR VOLUME 86 fL (79-100); MONO % 8 % (0-9); NEUT % 57 % (31-73); PLATELET COUNT 196 x10^3/uL (140-400); RED BLOOD COUNT 4.83 x10^6/uL (4.30-5.70); RED CELL DISTRIBUTION WIDTH 14.9 % (11.5-14.5); WHITE BLOOD COUNT 8.1 x10^3/uL (4.0-11.0)
[2017-08-05 06:25] LABS: CREATININE 1.4 mg/dL (0.7-1.3); GFR 51.9; POTASSIUM 4.8 mmol/L (3.5-5.1)
[2017-08-05 07:00] VITALS: BP 138/90
--- NOTE | 2017-08-05 07:33 | CONS ---
DATE OF CONSULTATION: 08/04/2017 REFERRING PHYSICIAN: Lupe Tucker M.D. REASON FOR CONSULTATION: Stroke, uncontrolled hypertension and hyperlipidemia. HISTORY OF PRESENT ILLNESS: The patient is a very pleasant 57-year-old man who began to have symptoms around 12:15 this morning. 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 He was going from [place], [place] to [place]. He was in [place] and stopped it and quit trip. When he went to the counter, he noticed his left side felt funny. It is not exactly weak are numb, but it just did not feel right. This affected the arm much more than the leg. He was still able to walk. This did not affect vision, thinking or talking. He went to the Emergency Room where he was evaluated. He was seen by Dr. Cortes where she noted that he was having some tingling without any other neurologic symptoms. He had high blood pressure and has been not taking his medications for a number of weeks. By her evaluation the NIH scale was 0, so she did not consider TPA. The symptoms have not advanced or progressed. He is about the same. PAST MEDICAL HISTORY: 1. Hypertension. 2. Hyperlipidemia. 3. Myocardial infarction in 2010 status post cardiac stent in 2010. ALLERGIES: No known allergies to drugs. MEDICATIONS PRIOR TO ADMISSION: None. He was supposed to be on aspirin 325 mg, atorvastatin 40 mg, clopidogrel 75 mg, Famotidine 20 mg as needed, lisinopril 20 mg and metoprolol 25 mg twice per day. FAMILY HISTORY: His father had a stroke and is still living. His mother may have a myelodysplastic disorder, he is not sure, but she requires transfusion. His brother was congenitally deaf. SOCIAL HISTORY: He is single and has no children. He smokes a pack of cigarettes per day. He does not drink alcohol. He does not use recreational drugs. 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 REVIEW OF SYSTEMS: He has not had any headache. There has been no change of vision or hearing. He has not had any changes in cognition or speech. Does not have any nose or sinus trouble. He has not had any trouble with swallowing or choking. He denies any shortness of breath or chest or abdominal pain. He does not have bone or joint pain. He has not had any fevers. He has had a rash for a number of years on the top of his right foot, which has a reddened itchy area. He has not had gastrointestinal or genitourinary complaints. He denies any psychiatric concerns. He has not had easy bruising or bleeding. He does have some swelling occasionally in his feet and ankles. He does have changes on the left side where it feels funny, although not numb but more difficult to control. PHYSICAL EXAMINATION: VITAL SIGNS: The blood pressure was 159/98, pulse 88, respirations 16 and temperature 98.2 degrees Fahrenheit. Oximetry was 96% on room air. His weight was 190 pounds with a height of 73 inches and a calculated body mass index of 25.1. NEUROLOGICAL: He was alert, awake and cooperative. The speech was fluent and clear. He had a good fund of recent and remote knowledge. Attention and concentration was intact. He appeared well groomed and well nourished. He was fully oriented. Examination of the cranial nerves revealed visual knox were full to confrontation. Extraocular movements were intact. The eyes were conjugate. Pursuit movements were smooth and saccadic eye movements were without dysmetria. There was no nystagmus. Pupils were 3 mm and reactive. Funduscopic exam did not reveal papilledema, exudate or hemorrhage. Facial sensation was intact. The muscles of mastication and facial expression were powerful symmetrically. Hearing was intact to finger rub. The palate arches symmetrically and the tongue was midline with full range of motion. Sternocleidomastoid and trapezius were powerful. Muscle bulk and tone was normal. There was some left arm drift, but there was no left leg drift. Power was full on the right side and in both legs. Power was weak in the left arm with respect to wrist extension, elbow flexion and extension and arm abduction 5-/5. Reflexes were 2+ over 4 and symmetric in the upper extremities, 2 over 4 at the knees and ankles. The toes were downgoing bilaterally. Coordination testing with [id number], [id number], fine motor and rapid alternating movements was fairly well performed, although not quite as well with the left hand with [id number] and fine motor and left leg [id number], not quite as acute as the right. Sensory examination was intact to pain, light touch, proprioception, graphesthesia, cold thermal and vibration. There was no extinction to double simultaneous stimulation. Gait was of a normal base and a steady walk. He was able to heel, toe and tandem walk. The Romberg stance was negative. NECK: Auscultation of the carotid arteries did not reveal a bruit. HEART: Rhythm was regular without a murmur. EXTREMITIES: Peripheral pulses were 2/4 and symmetric in the hands and feet. There was slight amount of edema in the ankles and feet. He had a 6 cm patch of reddened, thickened area on the top of his left foot. REVIEW OF LABORATORY DATA: CBC revealed a normal white blood cell count, hemoglobin, hematocrit and platelet count. Sodium was normal but potassium was low at 3.3 with normal chloride and CO2. BUN was 11 but creatinine was elevated to 1.4 with a calculated GFR of 51.9. Glucose was elevated at 109, random. Calcium was normal. Liver enzymes were not elevated, except for alkaline phosphatase at 164. Total protein and albumin were normal. Troponins were not elevated. Urine drug screen was negative. Alcohol was not detected. PT/INR was 1 and PTT was 28. RADIOLOGICAL DATA: A CT scan of the brain was performed in the Emergency Room revealing no acute intracranial process. Chest x-ray revealed no acute process. MRI of the brain was performed this afternoon, which did reveal evidence of a stroke, which was acute on the right hemisphere adjacent to the posterior aspect of the right lateral ventricle and the rodríguez radiata extending posteriorly to the basal ganglia. No other strokes were seen. IMPRESSION: The patient is a very pleasant 57-year-old man who developed symptoms of his left side feeling funny and different. This is likely due to this acute stroke we are seeing on the MRI, which would be more of a lacunar stroke due to potentially uncontrolled high blood pressure, smoking and uncontrolled cholesterol because he has discontinued all of his medications. He has known coronary artery disease and has undergone a stent placement. He is also a smoker as a risk factor. Prognosis for recovery is excellent. Chance for recurrent stroke is significant. RECOMMENDATIONS: I had long discussions with the patient that he is at risk for future strokes if he does not work on addressing his risk factors. We discussed that he has to be aware that if he has smoked at his last cigarette already, he cannot smoke another. He needs to program alarms to remind him to take his medicines. We need to address the hyperlipidemia and the high blood pressure. His previous medicines may be fine if he takes him on a regular basis. The blood pressure will need to be monitored to make sure these medicines control the blood pressure. He will need a followup fasting lipid profile and after he has been on the atorvastatin for a month to make sure it is working adequately. He should be back on his Plavix and I suspect he was on dual antiplatelet therapy because of the stent. An echocardiogram has been ordered to make sure that there is not a cardioembolic source. I will also like to obtain a carotid Doppler to look for evidence of critical stenosis. I appreciate being involved in his care. VERN ASHLEY MD DR: ANITA/alex JOB#: [id number] / [id number] Dr. EZIO Steel URSULA MD SHI, FERILYN MD
--- NOTE | 2017-08-05 08:37 | RAD ---
Carotid ultrasound, 08/04/2017: History: Stroke, left arm numbness Duplex evaluation of the carotid arteries in neck was performed including grayscale, color-flow and spectral Doppler analysis. There is moderate smooth plaquing in the distal left common carotid artery. There is moderate atherosclerotic plaquing at both carotid bifurcations. The bifurcation plaques are partially calcified. On the right, the peak systolic velocity in the internal carotid artery is 71 cm/s with an end-diastolic velocity of 31 cm/s. On the left the peak systolic velocity in the internal carotid artery is 67 cm/s with an end-diastolic velocity of 32 cm/s. These Doppler findings suggest narrowing in the 0-50% diameter range. Antegrade flow is present in both vertebral arteries in the neck. IMPRESSION: Moderate atherosclerotic plaquing in the distal left common carotid artery and at both carotid bifurcations with underlying luminal narrowing in the 0-50% diameter range bilaterally. Note: Stenosis calculations for CTA, MRA and conventional angiography are based upon determination of the distal ICA diameter in accordance with the NASCET methodology. Stenosis calculations for Doppler studies are derived from validated velocity criteria which are known to correlate with NASCET methodology of determining stenosis.
[2017-08-05] MEDS: CLOPIDOGREL BISULFATE 75 MG TABLET PO SCH (09:13)
[2017-08-05] MEDS: ASPIRIN 325 MG TABLET PO SCH (09:13)
[2017-08-05] MEDS: METOPROLOL TART IMMED RELEASE 25 MG TABLET. PO SCH ×2 (09:13→21:09)
[2017-08-05] MEDS: LISINOPRIL 40 MG TABLET. PO SCH (09:18)
[2017-08-05 11:00] VITALS: BP 124/77
--- NOTE | 2017-08-05 13:29 | PDOC ---
PROGRESS NOTES Chief Complaint Chief Complaint left arm numbness/weakness, 2/2 right small stroke htn URGENCY hld h/o CAD with 1 stent tobaccoism HYPOKALEMIA plan: neuro consulted brain MRI + stroke carotid US ok, echo pending add asa, plavix cont metoprol, increase lisinopril to 40mg daily dvt ppx educated pt to stop smoking and be compliant with meds replete K cont monitor BP today, dc tmr History of Present Illness History of Present Illness ROS: NO fever, chills, sob or chest pain left arm weaker today bp ok + MRI stroke echo, carotid pending Vitals Vitals Vital Signs Date Time Temp Pulse Resp B/P (MAP) Pulse Ox O2 Delivery O2 Flow Rate FiO2 08/05/17 11:00 98.0 81 20 124/77 (93) 96 Room Air 98.0 Physical Exam Physical Exam left arm strength 3/5, right 5/5 General: Alert, Oriented X3, Cooperative Heart: Regular rate, Normal S1, Normal S2 Lungs: Clear Abdomen: Normal bowel sounds, Soft Extremities: No clubbing, No cyanosis Skin: No rashes Labs LABS Laboratory Tests Test 08/04/17 18:30 08/05/17 05:00 Troponin I Quantitative < 0.017 ng/mL (0.000-0.055) White Blood Count 8.1 x10^3/uL (4.0-11.0) Red Blood Count 4.83 x10^6/uL (4.30-5.70) Hemoglobin 13.9 g/dL (13.0-17.5) Hematocrit 41.7 % (39.0-53.0) Mean Corpuscular Volume 86 fL (79-100) Mean Corpuscular Hemoglobin 29 pg (25-35) Mean Corpuscular Hemoglobin Concent 34 g/dL (31-37) Red Cell Distribution Width 14.9 % (11.5-14.5) Platelet Count 196 x10^3/uL (140-400) Neutrophils (%) (Auto) 57 % (31-73) Lymphocytes (%) (Auto) 32 % (24-48) Monocytes (%) (Auto) 8 % (0-9) Eosinophils (%) (Auto) 3 % (0-3) Basophils (%) (Auto) 1 % (0-3) Neutrophils # (Auto) 4.6 x10^3uL (1.8-7.7) Lymphocytes # (Auto) 2.6 x10^3/uL (1.0-4.8) Monocytes # (Auto) 0.6 x10^3/uL (0.0-1.1) Eosinophils # (Auto) 0.2 x10^3/uL (0.0-0.7) Basophils # (Auto) 0.1 x10^3/uL (0.0-0.2) Sodium Level 143 mmol/L (136-145) Potassium Level 4.8 mmol/L (3.5-5.1) Chloride Level 106 mmol/L (98-107) Carbon Dioxide Level 27 mmol/L (21-32) Anion Gap 10 (6-14) Blood Urea Nitrogen 15 mg/dL (8-26) Creatinine 1.4 mg/dL (0.7-1.3) Estimated GFR (Cockcroft-Gault) 51.9 Glucose Level 80 mg/dL (70-99) Calcium Level 9.0 mg/dL (8.5-10.1) Triglycerides Level 72 mg/dL (0-150) Cholesterol Level 177 mg/dL (0-200) LDL Cholesterol, Calculated 119 mg/dL (0-100) VLDL Cholesterol, Calculated 14 mg/dL (0-40) Non-HDL Cholesterol Calculated 133 mg/dL (0-129) HDL Cholesterol 44 mg/dL (40-60) Cholesterol/HDL Ratio 4.0 Assessment and Plan Assessmemt and Plan Problems Medical Problems: (1) Accelerated hypertension Status: Acute (2) Hypokalemia Status: Acute (3) Paresthesia Status: Acute Problems: Comment Review of Relevant I have reviewed the following items luis (where applicable) has been applied. Labs Laboratory Tests Test 08/04/17 01:37 08/04/17 02:30 08/04/17 11:46 08/04/17 18:30 White Blood Count 10.5 x10^3/uL (4.0-11.0) Red Blood Count 5.10 x10^6/uL (4.30-5.70) Hemoglobin 14.6 g/dL (13.0-17.5) Hematocrit 43.4 % (39.0-53.0) Mean Corpuscular Volume 85 fL (79-100) Mean Corpuscular Hemoglobin 29 pg (25-35) Mean Corpuscular Hemoglobin Concent 34 g/dL (31-37) Red Cell Distribution Width 14.0 % (11.5-14.5) Platelet Count 200 x10^3/uL (140-400) Neutrophils (%) (Auto) 51 % (31-73) Lymphocytes (%) (Auto) 37 % (24-48) Monocytes (%) (Auto) 9 % (0-9) Eosinophils (%) (Auto) 3 % (0-3) Basophils (%) (Auto) 1 % (0-3) Neutrophils # (Auto) 5.4 x10^3uL (1.8-7.7) Lymphocytes # (Auto) 3.8 x10^3/uL (1.0-4.8) Monocytes # (Auto) 0.9 x10^3/uL (0.0-1.1) Eosinophils # (Auto) 0.3 x10^3/uL (0.0-0.7) Basophils # (Auto) 0.1 x10^3/uL (0.0-0.2) Prothrombin Time 12.2 SEC (11.7-14.0) Prothromb Time International Ratio 1.0 (0.8-1.1) Activated Partial Thromboplast Time 28 SEC (24-38) Sodium Level 139 mmol/L (136-145) Potassium Level 3.3 mmol/L (3.5-5.1) Chloride Level 102 mmol/L (98-107) Carbon Dioxide Level 28 mmol/L (21-32) Anion Gap 9 (6-14) Blood Urea Nitrogen 11 mg/dL (8-26) Creatinine 1.4 mg/dL (0.7-1.3) Estimated GFR (Cockcroft-Gault) 51.9 BUN/Creatinine Ratio 8 (6-20) Glucose Level 109 mg/dL (70-99) Calcium Level 8.9 mg/dL (8.5-10.1) Total Bilirubin 0.3 mg/dL (0.2-1.0) Aspartate Amino Transf (AST/SGOT) 17 U/L (15-37) Alanine Aminotransferase (ALT/SGPT) 24 U/L (16-63) Alkaline Phosphatase 164 U/L (46-116) Troponin I Quantitative < 0.017 ng/mL (0.000-0.055) < 0.017 ng/mL (0.000-0.055) < 0.017 ng/mL (0.000-0.055) Total Protein 7.5 g/dL (6.4-8.2) Albumin 4.3 g/dL (3.4-5.0) Albumin/Globulin Ratio 1.3 (1.0-1.7) Ethyl Alcohol Level < 10 mg/dL (0-10) Urine Opiates Screen Neg (NEG) Urine Methadone Screen Neg (NEG) Urine Barbiturates Neg (NEG) Urine Phencyclidine Screen Neg (NEG) Urine Amphetamine/Methamphetamine Neg (NEG) Urine Benzodiazepines Screen Neg (NEG) Urine Cocaine Screen Neg (NEG) Urine Cannabinoids Screen Neg (NEG) Urine Ethyl Alcohol Neg (NEG) Test 08/05/17 05:00 White Blood Count 8.1 x10^3/uL (4.0-11.0) Red Blood Count 4.83 x10^6/uL (4.30-5.70) Hemoglobin 13.9 g/dL (13.0-17.5) Hematocrit 41.7 % (39.0-53.0) Mean Corpuscular Volume 86 fL (79-100) Mean Corpuscular Hemoglobin 29 pg (25-35) Mean Corpuscular Hemoglobin Concent 34 g/dL (31-37) Red Cell Distribution Width 14.9 % (11.5-14.5) Platelet Count 196 x10^3/uL (140-400) Neutrophils (%) (Auto) 57 % (31-73) Lymphocytes (%) (Auto) 32 % (24-48) Monocytes (%) (Auto) 8 % (0-9) Eosinophils (%) (Auto) 3 % (0-3) Basophils (%) (Auto) 1 % (0-3) Neutrophils # (Auto) 4.6 x10^3uL (1.8-7.7) Lymphocytes # (Auto) 2.6 x10^3/uL (1.0-4.8) Monocytes # (Auto) 0.6 x10^3/uL (0.0-1.1) Eosinophils # (Auto) 0.2 x10^3/uL (0.0-0.7) Basophils # (Auto) 0.1 x10^3/uL (0.0-0.2) Sodium Level 143 mmol/L (136-145) Potassium Level 4.8 mmol/L (3.5-5.1) Chloride Level 106 mmol/L (98-107) Carbon Dioxide Level 27 mmol/L (21-32) Anion Gap 10 (6-14) Blood Urea Nitrogen 15 mg/dL (8-26) Creatinine 1.4 mg/dL (0.7-1.3) Estimated GFR (Cockcroft-Gault) 51.9 Glucose Level 80 mg/dL (70-99) Calcium Level 9.0 mg/dL (8.5-10.1) Triglycerides Level 72 mg/dL (0-150) Cholesterol Level 177 mg/dL (0-200) LDL Cholesterol, Calculated 119 mg/dL (0-100) VLDL Cholesterol, Calculated 14 mg/dL (0-40) Non-HDL Cholesterol Calculated 133 mg/dL (0-129) HDL Cholesterol 44 mg/dL (40-60) Cholesterol/HDL Ratio 4.0 Laboratory Tests Test 08/04/17 18:30 08/05/17 05:00 Troponin I Quantitative < 0.017 ng/mL (0.000-0.055) White Blood Count 8.1 x10^3/uL (4.0-11.0) Red Blood Count 4.83 x10^6/uL (4.30-5.70) Hemoglobin 13.9 g/dL (13.0-17.5) Hematocrit 41.7 % (39.0-53.0) Mean Corpuscular Volume 86 fL (79-100) Mean Corpuscular Hemoglobin 29 pg (25-35) Mean Corpuscular Hemoglobin Concent 34 g/dL (31-37) Red Cell Distribution Width 14.9 % (11.5-14.5) Platelet Count 196 x10^3/uL (140-400) Neutrophils (%) (Auto) 57 % (31-73) Lymphocytes (%) (Auto) 32 % (24-48) Monocytes (%) (Auto) 8 % (0-9) Eosinophils (%) (Auto) 3 % (0-3) Basophils (%) (Auto) 1 % (0-3) Neutrophils # (Auto) 4.6 x10^3uL (1.8-7.7) Lymphocytes # (Auto) 2.6 x10^3/uL (1.0-4.8) Monocytes # (Auto) 0.6 x10^3/uL (0.0-1.1) Eosinophils # (Auto) 0.2 x10^3/uL (0.0-0.7) Basophils # (Auto) 0.1 x10^3/uL (0.0-0.2) Sodium Level 143 mmol/L (136-145) Potassium Level 4.8 mmol/L (3.5-5.1) Chloride Level 106 mmol/L (98-107) Carbon Dioxide Level 27 mmol/L (21-32) Anion Gap 10 (6-14) Blood Urea Nitrogen 15 mg/dL (8-26) Creatinine 1.4 mg/dL (0.7-1.3) Estimated GFR (Cockcroft-Gault) 51.9 Glucose Level 80 mg/dL (70-99) Calcium Level 9.0 mg/dL (8.5-10.1) Triglycerides Level 72 mg/dL (0-150) Cholesterol Level 177 mg/dL (0-200) LDL Cholesterol, Calculated 119 mg/dL (0-100) VLDL Cholesterol, Calculated 14 mg/dL (0-40) Non-HDL Cholesterol Calculated 133 mg/dL (0-129) HDL Cholesterol 44 mg/dL (40-60) Cholesterol/HDL Ratio 4.0 Medications Current Medications Labetalol HCl (Normodyne) 10 mg 1X ONCE IVP Last administered on 08/04/17 02: 57; Start 08/04/17 at 02:15; Stop 08/04/17 at 02:16; Status DC Aspirin (Julia Aspirin) 325 mg 1X ONCE PO Last administered on 08/04/17 03:00 ; Start 08/04/17 at 03:00; Stop 08/04/17 at 03:02; Status DC Potassium Chloride (Klor-Con) 40 meq 1X ONCE PO Last administered on 03:55; Start 08/04/17 at 03:30; Stop 08/04/17 at 03:31; Status DC Ondansetron HCl (Zofran) 4 mg PRN Q8HRS PRN IV NAUSEA/VOMITING; Start 08/04/17 at 03:45; Stop 08/04/17 at 13:38; Status DC Morphine Sulfate 2 mg PRN Q2HR PRN IV PAIN; Start 08/04/17 at 03:45; Stop 08/04 at 13:38; Status DC Acetaminophen (Tylenol) 650 mg PRN Q4HRS PRN PO FEVER; Start 08/04/17 at 03:45 ; Stop 08/04/17 at 13:38; Status DC Labetalol HCl (Normodyne) 10 mg PRN Q2HR PRN IVP HYPERTENSION, SEE COMMENTS Last administered on 08/04/17 05:55; Start 08/04/17 at 03:45; Stop 08/04/17 at 16:58; Status DC Aspirin (Julia Aspirin) 325 mg DAILY PO Last administered on 08/05/17 09:13; Start 08/04/17 at 09:00 Atorvastatin Calcium (Lipitor) 40 mg HS PO Last administered on 08/04/17 21:24 ; Start 08/04/17 at 21:00 Famotidine (Pepcid) 20 mg PRN QHS PRN PO HEARTBURN / GAS Last administered on 08/04/17 06:32; Start 08/04/17 at 06:30 Lisinopril (Prinivil) 20 mg DAILY PO Last administered on 08/04/17 08:15; Start 08/04/17 at 09:00; Stop 08/04/17 at 13:32; Status DC Metoprolol Tartrate (Lopressor) 25 mg BID PO Last administered on 08/04/17 08: 15; Start 08/04/17 at 09:00; Stop 08/04/17 at 16:58; Status DC Acetaminophen (Tylenol) 650 mg PRN Q6HRS PRN PO FEVER; Start 08/04/17 at 10:00 Ondansetron HCl (Zofran) 4 mg PRN Q6HRS PRN IV NAUSEA/VOMITING; Start 08/04/17 at 10:00 Morphine Sulfate 2 mg PRN Q2HR PRN IV PAIN; Start 08/04/17 at 10:00 Tramadol HCl (Ultram) 50 mg PRN Q6HRS PRN PO PAIN; Start 08/04/17 at 10:00 Hydralazine HCl (Apresoline) 10 mg PRN Q4HRS PRN IVP ELEVATED BP, SEE COMMENTS ; Start 08/04/17 at 10:00; Stop 08/04/17 at 16:58; Status DC Docusate Sodium (Colace) 100 mg PRN DAILY PRN PO CONSTIPATION Last administered on 08/05/17 09:13; Start 08/04/17 at 10:00 Lisinopril (Prinivil) 40 mg DAILY PO Last administered on 08/05/17 09:18; Start 08/05/17 at 09:00 Enoxaparin Sodium (Lovenox 40mg Syringe) 40 mg Q24H SQ Last administered on 17:55; Start 08/04/17 at 14:00 Clopidogrel Bisulfate (Plavix) 75 mg DAILY PO Last administered on 08/05/17 09 :13; Start 08/04/17 at 14:00 Metoprolol Tartrate (Lopressor) 25 mg BID PO Last administered on 08/05/17 09: 13; Start 08/05/17 at 10:00 Hydralazine HCl (Apresoline) 10 mg PRN Q4HRS PRN IVP ELEVATED BP, SEE COMMENTS ; Start 08/04/17 at 17:00 Active Scripts Active Reported Pepcid (Famotidine) 20 Mg Tablet 20 Mg PO HS PRN Lipitor (Atorvastatin Calcium) 40 Mg Tablet 1 Tab PO DAILY Metoprolol Tartrate 25 Mg Tablet 1 Tab PO BID Lisinopril 20 Mg Tablet 1 Tab PO DAILY Clopidogrel (Clopidogrel Bisulfate) 75 Mg Tablet 1 Tab PO DAILY Aspirin 325 Mg Tablet 1 Tab PO DAILY Vitals/I & O Vital Sign - Last 24 Hours 08/04/17 08/04/17 08/04/17 08/04/17 15:00 20:13 20:25 23:19 Temp 97.8 98.2 97.9 97.8 98.2 97.9 Pulse 90 88 86 Resp 20 16 16 B/P (MAP) 144/99 (114) 159/98 (118) 141/94 (110) Pulse Ox 97 96 95 O2 Delivery Room Air Room Air Room Air Room Air 08/05/17 08/05/17 08/05/17 08/05/17 03:41 07:00 08:00 09:13 Temp 98.2 97.4 98.2 97.4 Pulse 94 92 92 Resp 16 19 B/P (MAP) 124/62 (82) 138/90 (106) 138/90 Pulse Ox 95 94 O2 Delivery Room Air Room Air Room Air 08/05/17 08/05/17 09:18 11:00 Temp 98.0 98.0 Pulse 92 81 Resp 20 B/P (MAP) 138/90 124/77 (93) Pulse Ox 96 O2 Delivery Room Air ISAIAS CERVANTES MD Aug 05, 2017 13:29
[2017-08-05] MEDS ORDERED: ALPRAZolam 0.25 MG TABLET PO PRN (13:30)
[2017-08-05] MEDS: ENOXAPARIN 40 MG/0.4 ML SYRINGE. SQ SCH (14:03)
[2017-08-05 15:00] VITALS: BP 155/99
--- NOTE | 2017-08-05 16:54 | PDOC ---
PROGRESS NOTES Assessment Problems Medical Problems: (1) Accelerated hypertension Status: Acute -the blood pressures are coming under better control. He is noting that when he first gets up he feels extremely lightheaded so may be orthostatic. (2) Hypokalemia Status: Acute (3) Paresthesia Status: Acute -he is not having tingling any longer 4. Stroke-he has suffered a lacunar stroke in the right hemisphere which has caused a funny feeling sensation on the left side of his body. Neurologically this manifests as and altered coordination. He does not have loss of strength or actual sensation. The stroke has not affected cognition, vision or processing. He is still able to walk very well. Examination today showed some improvement in the left leg but the left arm still has deficits. The carotid Doppler did not reveal any hemodynamically significant stenosis. The echocardiogram is pending for tomorrow. 5. Hyperlipidemia-he has been placed back on atorvastatin 40 mg. Plan 1. We discussed trying to reduce stroke risk factors. We'll recover from this stroke fairly well. I do anticipate in one week he will feel much better. From a neurologic perspective I don't see a long delay with his ability to drive. This has not affected spatial motor skills, strength or sensation. His vision is unimpaired. He has slightly diminished coordination with his left arm and hand. 2 hypertension-I will order orthostatic blood pressure checks to make sure he is not starting to drop and might require adjustment of his medications. 3. Hyperlipidemia he will continue atorvastatin 40 mg. He should have a follow- up fasting lipid profile in one-2 months to make sure the medicine is adequately working and lowering the LDL cholesterol below 70. 4. Tobacco abuse-we discussed the importance of smoking cessation immediately. 5. Coronary artery disease-for this reason as well as this acute stroke he needs to be maintained on the clopidogrel and aspirin. 6. Echocardiogram is pending. As long as this does not show an embolic source then he does not need to alter the aspirin and Plavix to full anticoagulation. He then could be dismissed from a neurologic perspective. Subjective 1 to I need to do about my driving. My left arm still does not feel back to normal. I haven't had any more symptoms or new symptoms. I'm feeling a little lightheaded when I get up. Objective Vital Signs Date Time Temp Pulse Resp B/P (MAP) Pulse Ox O2 Delivery O2 Flow Rate FiO2 10/8/17 15:00 97.8 77 21 155/99 (117) 99 Room Air 97.8 PHYSICAL EXAM He was alert, awake and cooperative. The speech was fluent and clear. He had a good fund of recent and remote knowledge. Attention and concentration was intact. He was well-groomed and well-nourished. He was fully oriented. Examination of the cranial nerves revealed visual knox were full to confrontation. Extraocular movements were intact. The eyes were conjugate. Pursuit movements were smooth and saccadic movements were without dysmetria. The pupils were 4 millimeters and reacted to light. There was no afferent pupillary defect. Funduscopic examination did not reveal papilledema, exudate or hemorrhage. Facial sensation was intact. The muscles of mastication and facial expression were powerful symmetrically. Hearing was intact to finger rub. The palate arch symmetrically and the tongue was midline with full range of motion. Sternocleidomastoid and trapezius were powerful bilaterally. Muscle bulk and tone was normal. There was no arm drift or abnormal movement. The power was full and symmetric in the upper and lower extremities. Coordination testing with finger to nose, heel to craft, fine motor and rapid alternating movements was well performed except for deficits with the left arm. The sensory examination was intact to pain and light touch. Review of Relevant I have reviewed the following items luis (where applicable) has been applied. Labs Laboratory Tests Test 08/04/17 01:37 08/04/17 02:30 08/04/17 11:46 08/04/17 18:30 White Blood Count 10.5 x10^3/uL (4.0-11.0) Red Blood Count 5.10 x10^6/uL (4.30-5.70) Hemoglobin 14.6 g/dL (13.0-17.5) Hematocrit 43.4 % (39.0-53.0) Mean Corpuscular Volume 85 fL (79-100) Mean Corpuscular Hemoglobin 29 pg (25-35) Mean Corpuscular Hemoglobin Concent 34 g/dL (31-37) Red Cell Distribution Width 14.0 % (11.5-14.5) Platelet Count 200 x10^3/uL (140-400) Neutrophils (%) (Auto) 51 % (31-73) Lymphocytes (%) (Auto) 37 % (24-48) Monocytes (%) (Auto) 9 % (0-9) Eosinophils (%) (Auto) 3 % (0-3) Basophils (%) (Auto) 1 % (0-3) Neutrophils # (Auto) 5.4 x10^3uL (1.8-7.7) Lymphocytes # (Auto) 3.8 x10^3/uL (1.0-4.8) Monocytes # (Auto) 0.9 x10^3/uL (0.0-1.1) Eosinophils # (Auto) 0.3 x10^3/uL (0.0-0.7) Basophils # (Auto) 0.1 x10^3/uL (0.0-0.2) Prothrombin Time 12.2 SEC (11.7-14.0) Prothromb Time International Ratio 1.0 (0.8-1.1) Activated Partial Thromboplast Time 28 SEC (24-38) Sodium Level 139 mmol/L (136-145) Potassium Level 3.3 mmol/L (3.5-5.1) Chloride Level 102 mmol/L (98-107) Carbon Dioxide Level 28 mmol/L (21-32) Anion Gap 9 (6-14) Blood Urea Nitrogen 11 mg/dL (8-26) Creatinine 1.4 mg/dL (0.7-1.3) Estimated GFR (Cockcroft-Gault) 51.9 BUN/Creatinine Ratio 8 (6-20) Glucose Level 109 mg/dL (70-99) Calcium Level 8.9 mg/dL (8.5-10.1) Total Bilirubin 0.3 mg/dL (0.2-1.0) Aspartate Amino Transf (AST/SGOT) 17 U/L (15-37) Alanine Aminotransferase (ALT/SGPT) 24 U/L (16-63) Alkaline Phosphatase 164 U/L (46-116) Troponin I Quantitative < 0.017 ng/mL (0.000-0.055) < 0.017 ng/mL (0.000-0.055) < 0.017 ng/mL (0.000-0.055) Total Protein 7.5 g/dL (6.4-8.2) Albumin 4.3 g/dL (3.4-5.0) Albumin/Globulin Ratio 1.3 (1.0-1.7) Ethyl Alcohol Level < 10 mg/dL (0-10) Urine Opiates Screen Neg (NEG) Urine Methadone Screen Neg (NEG) Urine Barbiturates Neg (NEG) Urine Phencyclidine Screen Neg (NEG) Urine Amphetamine/Methamphetamine Neg (NEG) Urine Benzodiazepines Screen Neg (NEG) Urine Cocaine Screen Neg (NEG) Urine Cannabinoids Screen Neg (NEG) Urine Ethyl Alcohol Neg (NEG) Test 08/05/17 05:00 White Blood Count 8.1 x10^3/uL (4.0-11.0) Red Blood Count 4.83 x10^6/uL (4.30-5.70) Hemoglobin 13.9 g/dL (13.0-17.5) Hematocrit 41.7 % (39.0-53.0) Mean Corpuscular Volume 86 fL (79-100) Mean Corpuscular Hemoglobin 29 pg (25-35) Mean Corpuscular Hemoglobin Concent 34 g/dL (31-37) Red Cell Distribution Width 14.9 % (11.5-14.5) Platelet Count 196 x10^3/uL (140-400) Neutrophils (%) (Auto) 57 % (31-73) Lymphocytes (%) (Auto) 32 % (24-48) Monocytes (%) (Auto) 8 % (0-9) Eosinophils (%) (Auto) 3 % (0-3) Basophils (%) (Auto) 1 % (0-3) Neutrophils # (Auto) 4.6 x10^3uL (1.8-7.7) Lymphocytes # (Auto) 2.6 x10^3/uL (1.0-4.8) Monocytes # (Auto) 0.6 x10^3/uL (0.0-1.1) Eosinophils # (Auto) 0.2 x10^3/uL (0.0-0.7) Basophils # (Auto) 0.1 x10^3/uL (0.0-0.2) Sodium Level 143 mmol/L (136-145) Potassium Level 4.8 mmol/L (3.5-5.1) Chloride Level 106 mmol/L (98-107) Carbon Dioxide Level 27 mmol/L (21-32) Anion Gap 10 (6-14) Blood Urea Nitrogen 15 mg/dL (8-26) Creatinine 1.4 mg/dL (0.7-1.3) Estimated GFR (Cockcroft-Gault) 51.9 Glucose Level 80 mg/dL (70-99) Calcium Level 9.0 mg/dL (8.5-10.1) Triglycerides Level 72 mg/dL (0-150) Cholesterol Level 177 mg/dL (0-200) LDL Cholesterol, Calculated 119 mg/dL (0-100) VLDL Cholesterol, Calculated 14 mg/dL (0-40) Non-HDL Cholesterol Calculated 133 mg/dL (0-129) HDL Cholesterol 44 mg/dL (40-60) Cholesterol/HDL Ratio 4.0 Laboratory Tests Test 08/04/17 18:30 08/05/17 05:00 Troponin I Quantitative < 0.017 ng/mL (0.000-0.055) White Blood Count 8.1 x10^3/uL (4.0-11.0) Red Blood Count 4.83 x10^6/uL (4.30-5.70) Hemoglobin 13.9 g/dL (13.0-17.5) Hematocrit 41.7 % (39.0-53.0) Mean Corpuscular Volume 86 fL (79-100) Mean Corpuscular Hemoglobin 29 pg (25-35) Mean Corpuscular Hemoglobin Concent 34 g/dL (31-37) Red Cell Distribution Width 14.9 % (11.5-14.5) Platelet Count 196 x10^3/uL (140-400) Neutrophils (%) (Auto) 57 % (31-73) Lymphocytes (%) (Auto) 32 % (24-48) Monocytes (%) (Auto) 8 % (0-9) Eosinophils (%) (Auto) 3 % (0-3) Basophils (%) (Auto) 1 % (0-3) Neutrophils # (Auto) 4.6 x10^3uL (1.8-7.7) Lymphocytes # (Auto) 2.6 x10^3/uL (1.0-4.8) Monocytes # (Auto) 0.6 x10^3/uL (0.0-1.1) Eosinophils # (Auto) 0.2 x10^3/uL (0.0-0.7) Basophils # (Auto) 0.1 x10^3/uL (0.0-0.2) Sodium Level 143 mmol/L (136-145) Potassium Level 4.8 mmol/L (3.5-5.1) Chloride Level 106 mmol/L (98-107) Carbon Dioxide Level 27 mmol/L (21-32) Anion Gap 10 (6-14) Blood Urea Nitrogen 15 mg/dL (8-26) Creatinine 1.4 mg/dL (0.7-1.3) Estimated GFR (Cockcroft-Gault) 51.9 Glucose Level 80 mg/dL (70-99) Calcium Level 9.0 mg/dL (8.5-10.1) Triglycerides Level 72 mg/dL (0-150) Cholesterol Level 177 mg/dL (0-200) LDL Cholesterol, Calculated 119 mg/dL (0-100) VLDL Cholesterol, Calculated 14 mg/dL (0-40) Non-HDL Cholesterol Calculated 133 mg/dL (0-129) HDL Cholesterol 44 mg/dL (40-60) Cholesterol/HDL Ratio 4.0 Medications Current Medications Labetalol HCl (Normodyne) 10 mg 1X ONCE IVP Last administered on 08/04/17 02: 57; Start 08/04/17 at 02:15; Stop 08/04/17 at 02:16; Status DC Aspirin ([place]iel [place] Aspirin) 325 mg 1X ONCE PO Last administered on 08/04/17 03:00 ; Start 08/04/17 at 03:00; Stop 08/04/17 at 03:02; Status DC Potassium Chloride (Klor-Con) 40 meq 1X ONCE PO Last administered on 03:55; Start 08/04/17 at 03:30; Stop 08/04/17 at 03:31; Status DC Ondansetron HCl (Zofran) 4 mg PRN Q8HRS PRN IV NAUSEA/VOMITING; Start 08/04/17 at 03:45; Stop 08/04/17 at 13:38; Status DC Morphine Sulfate 2 mg PRN Q2HR PRN IV PAIN; Start 08/04/17 at 03:45; Stop 08/04 at 13:38; Status DC Acetaminophen (Tylenol) 650 mg PRN Q4HRS PRN PO FEVER; Start 08/04/17 at 03:45 ; Stop 08/04/17 at 13:38; Status DC Labetalol HCl (Normodyne) 10 mg PRN Q2HR PRN IVP HYPERTENSION, SEE COMMENTS Last administered on 08/04/17 05:55; Start 08/04/17 at 03:45; Stop 08/04/17 at 16:58; Status DC Aspirin (Julia Aspirin) 325 mg DAILY PO Last administered on 08/05/17 09:13; Start 08/04/17 at 09:00 Atorvastatin Calcium (Lipitor) 40 mg HS PO Last administered on 08/04/17 21:24 ; Start 08/04/17 at 21:00 Famotidine (Pepcid) 20 mg PRN QHS PRN PO HEARTBURN / GAS Last administered on 08/04/17 06:32; Start 08/04/17 at 06:30 Lisinopril (Prinivil) 20 mg DAILY PO Last administered on 08/04/17 08:15; Start 08/04/17 at 09:00; Stop 08/04/17 at 13:32; Status DC Metoprolol Tartrate (Lopressor) 25 mg BID PO Last administered on 08/04/17 08: 15; Start 08/04/17 at 09:00; Stop 08/04/17 at 16:58; Status DC Acetaminophen (Tylenol) 650 mg PRN Q6HRS PRN PO FEVER; Start 08/04/17 at 10:00 Ondansetron HCl (Zofran) 4 mg PRN Q6HRS PRN IV NAUSEA/VOMITING; Start 08/04/17 at 10:00 Morphine Sulfate 2 mg PRN Q2HR PRN IV PAIN; Start 08/04/17 at 10:00 Tramadol HCl (Ultram) 50 mg PRN Q6HRS PRN PO PAIN; Start 08/04/17 at 10:00 Hydralazine HCl (Apresoline) 10 mg PRN Q4HRS PRN IVP ELEVATED BP, SEE COMMENTS ; Start 08/04/17 at 10:00; Stop 08/04/17 at 16:58; Status DC Docusate Sodium (Colace) 100 mg PRN DAILY PRN PO CONSTIPATION Last administered on 08/05/17 09:13; Start 08/04/17 at 10:00 Lisinopril (Prinivil) 40 mg DAILY PO Last administered on 08/05/17 09:18; Start 08/05/17 at 09:00 Enoxaparin Sodium (Lovenox 40mg Syringe) 40 mg Q24H SQ Last administered on 14:03; Start 08/04/17 at 14:00 Clopidogrel Bisulfate (Plavix) 75 mg DAILY PO Last administered on 08/05/17 09 :13; Start 08/04/17 at 14:00 Metoprolol Tartrate (Lopressor) 25 mg BID PO Last administered on 08/05/17 09: 13; Start 08/05/17 at 10:00 Hydralazine HCl (Apresoline) 10 mg PRN Q4HRS PRN IVP ELEVATED BP, SEE COMMENTS ; Start 08/04/17 at 17:00 Alprazolam (Xanax) 0.25 mg PRN Q8HRS PRN PO ANXIETY / AGITATION Last administered on 08/05/17 14:03; Start 08/05/17 at 13:30 Active Scripts Active Reported Pepcid (Famotidine) 20 Mg Tablet 20 Mg PO HS PRN Lipitor (Atorvastatin Calcium) 40 Mg Tablet 1 Tab PO DAILY Metoprolol Tartrate 25 Mg Tablet 1 Tab PO BID Lisinopril 20 Mg Tablet 1 Tab PO DAILY Clopidogrel (Clopidogrel Bisulfate) 75 Mg Tablet 1 Tab PO DAILY Aspirin 325 Mg Tablet 1 Tab PO DAILY Vitals/I & O Vital Sign - Last 24 Hours 08/04/17 08/04/17 08/04/17 08/05/17 20:13 20:25 23:19 03:41 Temp 98.2 97.9 98.2 98.2 97.9 98.2 Pulse 88 86 94 Resp 16 16 16 B/P (MAP) 159/98 (118) 141/94 (110) 124/62 (82) Pulse Ox 96 95 95 O2 Delivery Room Air Room Air Room Air Room Air 08/05/17 08/05/17 08/05/17 08/05/17 07:00 08:00 09:13 09:18 Temp 97.4 97.4 Pulse 92 92 92 Resp 19 B/P (MAP) 138/90 (106) 138/90 138/90 Pulse Ox 94 O2 Delivery Room Air Room Air 08/05/17 08/05/17 11:00 15:00 Temp 98.0 97.8 98.0 97.8 Pulse 81 77 Resp 20 21 B/P (MAP) 124/77 (93) 155/99 (117) Pulse Ox 96 99 O2 Delivery Room Air Room Air VERN ASHLEY MD Aug 05, 2017 16:54
[2017-08-05 19:25] VITALS: BP 161/105
[2017-08-05] MEDS: ATORVASTATIN CALCIUM 40 MG TABLET. PO SCH (21:09)
[2017-08-05 23:25] VITALS: BP 127/76
[2017-08-06 03:25] VITALS: BP 105/69
[2017-08-06 07:55] VITALS: BP 147/93
[2017-08-06] MEDS: CLOPIDOGREL BISULFATE 75 MG TABLET PO SCH (09:20)
[2017-08-06] MEDS: ASPIRIN 325 MG TABLET PO SCH (09:20)
[2017-08-06] MEDS: LISINOPRIL 40 MG TABLET. PO SCH (09:21)
[2017-08-06] MEDS: METOPROLOL TART IMMED RELEASE 25 MG TABLET. PO SCH ×2 (09:22→19:22)
[2017-08-06] MEDS ORDERED: ASPI325T8 PO (10:59)
[2017-08-06] MEDS ORDERED: LISI40TA PO (10:59)
[2017-08-06] MEDS ORDERED: CLOP75TA PO (10:59)
[2017-08-06] MEDS ORDERED: METO25TA4 PO (10:59)
[2017-08-06] MEDS ORDERED: ATOR40TA PO (10:59)
--- NOTE | 2017-08-06 13:20 | CARD ---
APPROVED REPORT EXAM: Two-dimensional and M-mode echocardiogram with Doppler and color Doppler. Other Information Quality : Good INDICATION CVA/TIA Hypertension/HCVD 2D DIMENSIONS RVDd2.8 (2.9-3.5cm)Left Atrium(2D)3.6 (1.6-4.0cm) IVSd1.3 (0.7-1.1cm)Aortic Root(2D)3.4 (2.0-3.7cm) LVDd5.1 (3.9-5.9cm)LVOT Diameter2.5 (1.8-2.4cm) PWd1.2 (0.7-1.1cm)LVDs4.1 (2.5-4.0cm) FS (%) 27.5 %SV49.4 ml LVEF(%)55.0 (>50%) Aortic Valve AoV Peak Amish.143.5cm/sAoV VTI24.7cm AO Peak GR.8.2mmHgLVOT Peak Amish.78.5cm/s AO Mean GR.4mmHgAVA (VMAX)2.59cm2 LATONYA (VTI)3.00cm2 Mitral Valve MV E Uuwuhkdr40.1cm/sMV DECEL VHPA190tg MV A Hukrlzmt33.5cm/sE/A Ratio0.6 Tricuspid Valve TR P. Uwsueyxg526iv/sRAP QOPXXTWA8atNi TR Peak Gr.11muVgGUQZ54rjJr Pulmonary Vein S1 Diujodob12.7cm/sD2 Ecvxgaqg03.9cm/s LEFT VENTRICLE The Left Ventricle is borderline dilated. There is mild concentric left ventricular hypertrophy. Left ventricle systolic function is low normal. The Ejection Fraction is 50-55% There is normal LV segmen yumiko wall motion. Transmitral Doppler flow pattern is Grade I-abnormal relaxation pattern. RIGHT VENTRICLE The right ventricle is normal size. The right ventricular systolic function is normal. ATRIA The left atrium size is normal. The right atrium size is normal. The interatrial septum is intact wit h no evidence for an atrial septal defect or patent foramen ovale as noted on 2-D or Doppler imaging. AORTIC VALVE The aortic valve is calcified but opens well. Doppler and Color Flow revealed trace aortic regurgitat ion. There is no significant aortic valvular stenosis. MITRAL VALVE The mitral valve is calcified but opens well. There is no evidence of mitral valve prolapse. There is no mitral valve stenosis. Doppler and Color-flow revealed trace mitral regurgitation. TRICUSPID VALVE The tricuspid valve is normal in structure and function. Doppler and Color Flow revealed trace tricus pid regurgitation. The PA pressure was estimated at 22 mmHg. There is no tricuspid valve stenosis. PULMONIC VALVE The pulmonary valve is normal in structure and function. Doppler and Color Flow revealed trace pulmon ic valvular regurgitation. There is no pulmonic valvular stenosis. GREAT VESSELS The aortic root is normal in size. The ascending aorta is mildly dilated at 3.7 cm. The IVC is normal in size and collapses >50% with inspiration. PERICARDIAL EFFUSION There is no evidence of significant pericardial effusion. Critical Notification Critical Value: No <Conclusion> The Left Ventricle is borderline dilated. Left ventricle systolic function is low normal. The Ejection Fraction is 50-55% There is mild concentric left ventricular hypertrophy. The interatrial septum is intact with no evidence for an atrial septal defect or patent foramen ovale as noted on 2-D or Doppler imaging. There is no significant aortic valvular stenosis. Doppler and Color Flow revealed trace aortic regurgitation. Doppler and Color-flow revealed trace mitral regurgitation. Doppler and Color Flow revealed trace tricuspid regurgitation. The PA pressure was estimated at 22 mmHg. The ascending aorta is mildly dilated at 3.7 cm.
--- NOTE | 2017-08-06 14:11 | PDOC3 ---
Discharge Summary [facility] Date of Admission: Aug 04, 2017 Discharge Date: Aug 06, 2017 Admitting Diagnosis left arm numbness/weakness, 2/2 right small stroke htn URGENCY hld h/o CAD with 1 stent tobaccoism HYPOKALEMIA uncompliance Problems: Final Diagnosis CONSULTS neuro Brief Hospital Course Patient is a 57 year old male who presents with left arm numbness and weakness since 1am. 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 1AM, he was driving the truck, feels left arm numbness, some weakness, left leg is ok. has some headache x2 weeks, no vision or hearing change. Denies fever, chills, sob, slurry speech, chest pain, sob. never had CVA. <1PPD head CT neg, BP >200/120 in ER. MRI brain showed a small right side stroke. Carotid US ok. ECho EF 55%, mild aortic dilation at 3.7cm. stable to dc, still mild left arm weakness, one time blurry vision resolved. dc home dc time 35mi. educated pt to dc smoke and takes his meds. he agrees. left arm strength 3/5, right 5/5 General: Alert, Oriented X3, Cooperative Heart: Regular rate, Normal S1, Normal S2 Lungs: Clear Abdomen: Normal bowel sounds, Soft Extremities: No clubbing, No cyanosis Skin: No rashes Patient History: FH: anemia FH: deafness or hearing loss 33 FATHER 32 MOTHER FHx: stroke Unknown G8 BROTHER Problems: Disposition home CONDITION AT DISCHARGE: Improved Diet cardiac Scheduled Aspirin (Aspirin), 1 TAB PO DAILY Atorvastatin Calcium (Lipitor), 1 TAB PO DAILY Clopidogrel Bisulfate (Clopidogrel), 1 TAB PO DAILY Lisinopril (Lisinopril), 40 MG PO DAILY Metoprolol Tartrate (Metoprolol Tartrate), 1 TAB PO BID Scheduled PRN Famotidine (Pepcid), 20 MG PO HS PRN for HEARTBURN / GAS, (Reported) Discontinued Medications Lisinopril (Lisinopril), 1 TAB PO DAILY, (Reported) Follow Up pcp in 2 weeks ISAIAS CERVANTES MD Aug 06, 2017 14:11
--- NOTE | 2017-08-06 14:17 | PDOC ---
PROGRESS NOTES Assessment Assessment IMPRESSION: Subacute right small lacunar infarct adjacent to rodríguez radiata. Left UE weakness. HTN HLD. CAD, s/p stent placement. Smoking. RECOMMENDATIONS/PLAN: Continue Plavix 75 mg daily. Continue Lipitor HS. Smoking cessation. FU with PCP. FU with Neurology in 1 month. Past Medical History Cardiovascular: HTN, [place] Past Surgical History Cardiac stent placement. Family History stroke Social History Smoke: <1 pack per day ALCOHOL: occassionally Drugs: None ALLERGY: Reviewed. MEDICATIONS: Refer to MAR REVIEW OF SYSTEMS: Constitutional: No malnutrition, weight loss, cachexia. Head: No traumatic brain or head injury. Skin: No edema, or rash. Ear: No infection. Eyes: No vision loss, or diplopia. Nose: No bleeding or purulent discharges. Hearing: No hearing decrease. Hearing loss. Neck: No injury. Cardiac: CAD, stent Placement, HTN, HLD Pulmonary: Smoking. GI: No GI Ulcer, GI bleeding Urinary/genital: No dysuria, incontinence, urinary retention. Endocrine: No cousin face, craniofacial dysmorphism, polydactyly. Skeletomuscular: No muscular atrophy, deformity. Neurological: see HP. Psychiatric: Denies drug use/abuse. Otherwise, not [id number] review of systems. PHYSICAL EXAMINATION: General appearance in subacute distress. HEENT: Normocephalic and nontraumatic. Eyes, nose, ears, and throat are unremarkable Neck is supple. No lymphadenopathy. No bruits are heard over the carotid artery. No Crepitus. Cardiovascular: S1, S2, regular rate and rhythm. Pulmonary: Clear to auscultation bilaterally. Abdomen: Bowel sounds are positive. Abdomen is soft, nontender, and nondistended. Extremities: No rash, lesions, or edema. No restriction of range of motion NEUROLOGICAL EXAMINATION: Alert. Oriented to time, place and person. PERRL. EOMI. CN: no focal findings. Muscle tone: within normal. Muscle strength: 5 DTR: 2 Plantar reflex: Neutral response bilaterally Gait: At baseline normal. Sensory exam: no abnormal findings. No cerebellar signs elicited. F-T-N test accurate. Objective Objective Vital Signs Date Time Temp Pulse Resp B/P (MAP) Pulse Ox O2 Delivery O2 Flow Rate FiO2 08/06/17 09:22 73 147/93 08/06/17 07:55 98.2 18 97 Room Air 98.2 Intake and Output 08/07/17 07:00 Intake Total 360 ml Balance 360 ml Intake Oral 360 ml Vitals Signs Vitals VS - Last 72 Hours, by Label Date Time Temp Pulse Resp B/P (MAP) Pulse Ox O2 Delivery O2 Flow Rate FiO2 08/06/17 09:22 73 147/93 08/06/17 09:21 73 147/93 08/06/17 07:55 98.2 73 18 147/93 (111) 97 Room Air 98.2 08/06/17 03:25 98.1 94 17 105/69 (81) 98 Room Air 98.1 08/05/17 23:25 97.8 82 16 127/76 (93) 100 Room Air 97.8 08/05/17 21:09 73 161/105 08/05/17 20:17 Room Air 08/05/17 19:25 98.0 73 16 161/105 (123) 97 Room Air 98.0 08/05/17 15:00 97.8 77 21 155/99 (117) 99 Room Air 97.8 08/05/17 11:00 98.0 81 20 124/77 (93) 96 Room Air 98.0 08/05/17 09:18 92 138/90 08/05/17 09:13 92 138/90 08/05/17 08:00 Room Air 08/05/17 07:00 97.4 92 19 138/90 (106) 94 Room Air 97.4 Comment Review of Relevant I have reviewed the following items luis (where applicable) has been applied. KALIN ERICKSON MD Aug 06, 2017 14:17
[2017-08-06 14:37] VITALS: BP 145/105
[2017-08-06] MEDS: ENOXAPARIN 40 MG/0.4 ML SYRINGE. SQ SCH (17:15)
[2017-08-06] MEDS: ATORVASTATIN CALCIUM 40 MG TABLET. PO SCH (19:19)
[2017-08-06 19:22] VITALS: BP 157/105
== END 2017-08-06 19:30 | disposition home or self-care (01) | DRG 66 ==
LOC: ER 01:29 → 2 NORTH 03:35
PROVIDERS: ADMIT Internal Medicine Hematology & Oncology; ATTEND Internal Medicine Hematology & Oncology
DX: I63.9 Cerebral infarction, unspecified (principal); I10 Essential (primary) hypertension; E78.00 Pure hypercholesterolemia, unspecified; E87.6 Hypokalemia; E78.5 Hyperlipidemia, unspecified; F17.210 Nicotine dependence, cigarettes, uncomplicated; H91.90 Unspecified hearing loss, unspecified ear; I16.0 Hypertensive urgency; I25.10 Atherosclerotic heart disease of native coronary artery without angina pectoris; I25.2 Old myocardial infarction; I77.819 Aortic ectasia, unspecified site; Z79.02 Long term (current) use of antithrombotics/antiplatelets; Z79.899 Other long term (current) drug therapy; Z79.82 Long term (current) use of aspirin; Z95.5 Presence of coronary angioplasty implant and graft; Z91.14 Patient's other noncompliance with medication regimen; Z83.2 Family history of diseases of the blood and blood-forming organs and certain disorders involving the immune mechanism; Z82.3 Family history of stroke
CPT/HCPCS: 36415; 70450; 70551; 71010; 80048; 80053; 80061; 80307; 84484; 85025; 85610; 85730; 93005; 93306; 93880; 96374; 99406; G0480; J1650; J3490; 99285-25; G0479